=== PATIENT | male | born 1980 ===

== ENCOUNTER 2023-01-20 21:12 | Emergency (ER) | payer MEDICAID, SELFPAY ==
[2023-01-20 21:24] VITALS: BP 123/86; PULSE 82; RESP 20; TEMP 36.9; O2SAT 98; BMI 25.8
--- NOTE | 2023-01-20 23:14 | PC.NURSE ---
L upper molar pain, states hole in pain causing substantial amount of pain no apparent distress aox4 adult female family member and young child at bedside
--- NOTE | 2023-01-20 23:22 | ED.DENTAL ---
HPI - Dental/Oral General Chief complaint: Dental/Oral Stated complaint: tooth pain Time Seen by Provider: 01/20/23 23:06 Source: patient Mode of arrival: ambulatory Limitations: no limitations History of Present Illness HPI Narrative: Patient with dental cavity had a broken tooth upper L 2nd molar which is painful for last 1 week getting worse no fever no chills Related Data Previous Rx's Medication Instructions Recorded amoxicillin 875 mg-potassium 1 tab PO BID #20 tabs 01/20/23 clavulanate 125 mg tablet ibuprofen 600 mg tablet 600 mg PO Q6H PRN fever or pain 01/20/23 #30 tabs tramadol 50 mg tablet 50 mg PO Q6H PRN pain #20 tabs 01/20/23 Allergies Allergy/AdvReac Type Severity Reaction Status Date / Time No Known Allergies Allergy Verified 01/20/23 21:27 Review of Systems Review of Systems: Yes all other systems are reviewed and are negative PMFSH Social History Social History Advance Directives: No Advance Directives Information Provided: Yes Physical Exam Vital Signs: Vital Signs: Last Vital Signs Temp 98.4 F 01/20/23 21:24 Pulse 82 01/20/23 21:24 Resp 20 01/20/23 21:24 BP 123/86 01/20/23 21:24 Pulse Ox 98 01/20/23 21:24 O2 Del Method Room Air 01/20/23 21:24 BMI result Body Mass Index 25.8 HEENT: Teeth image: 1. Broken upper 2nd molar with tenderness no significant swelling Discharge Plan Discharge Clinical Impression: Dental caries Patient Disposition: Home, Self-Care Instructions: Toothache (ED) Additional Instructions: Take antibiotic as prescribed Pain medication as prescribed Follow-up with dentist Prescriptions: New tramadol 50 mg tablet 50 mg PO Q6H PRN (Reason: pain) Qty: 20 0RF ibuprofen 600 mg tablet 600 mg PO Q6H PRN (Reason: fever or pain) Qty: 30 0RF amoxicillin-pot clavulanate 875-125 mg tablet 1 tab PO BID Qty: 20 0RF
[2023-01-21] VITALS: BP 125/80; PULSE 73; RESP 19; TEMP 36.7; O2SAT 98
--- NOTE | 2023-01-21 00:20 | PC.NURSE ---
Discharge instructions given and explained to pt Ambulates safely/independently No apparent distress aox4 all of pt's questions answered pt left with family
== END 2023-01-21 00:16 | disposition home or self-care (01) ==
PROVIDERS: Emergency Provider Internal Medicine
DX: K02.9 Dental caries, unspecified (principal); K08.89 Other specified disorders of teeth and supporting structures
CPT/HCPCS: 99283; 99284

== ENCOUNTER 2024-01-22 14:19 | Outpatient (REF) | payer OTHER, SELFPAY ==
[2024-01-22 14:35] LABS: MANUAL DIFF FLAG NO
[2024-01-22 14:45] LABS: Basophils Absolute Auto 0.1 X10*3/uL (0.0-0.2); Basophils Percent Auto 0.5 % (0-2); Eosinophils Absolute Auto 0.3 X10*3/uL (0.0-0.4); Eosinophils Percent Auto 2.5 % (0-4); Hematocrit 44.5 % (42.0-52.0); Hemoglobin 15.2 g/dl (14.0-18.0); Imm Gran Abs Auto 0.05 X10*3/uL (0.00-0.03); Imm Gran Pct Auto 0.4 % (0.0-0.4); Lymphocytes Percent Auto 35.1 % (20-40); Mean Corpuscular HGB Conc 34.2 g/dl (31.0-36.0); Mean Corpuscular Hemoglobin 30.5 pg (27.0-33.0); Mean Corpuscular Volume 89.2 fL (80.0-98.0); Mean Platelet Volume 9.8 fL (9.4-12.4); Monocytes Percent Auto 9.1 % (2-11); Neutrophils Percent Auto 52.4 % (45-73); Platelet Count 368 X10*3/uL (160-400); Red Blood Count 4.99 X10*6/uL (4.60-5.80); Red Cell Distribution Width 14.1 % (11.0-16.0); White Blood Count 11.4 X10*3/uL (4.8-10.8)
[2024-01-22 15:29] LABS: Alanine Aminotransferase 19 U/L (0-40); Albumin Level 4.4 g/dL (3.5-5.0); Alkaline Phosphatase 71 U/L (39-117); Anion Gap 13 (12-20); Aspartate Amino Transferase 14 U/L (5-37); Bilirubin Total 0.3 mg/dL (0.0-1.0); Blood Urea Nitrogen 11 mg/dL (9-16); Calcium 9.5 mg/dL (8.4-10.2); Carbon Dioxide 25 mmol/L (22-29); Chloride 108 mmol/L (96-108); Cholesterol 226 mg/dL (<200); Estimated Glomerular Filt Rate > 60; Glucose Random 95 mg/dL (60-115); HDL Cholesterol 43 mg/dL (>40); LDL Cholesterol Calculated 159 mg/dL (<100); Potassium 4.1 mmol/L (3.3-5.1); Sodium 142 mmol/L (135-145); Triglycerides 122 mg/dL (<150)
== END 2024-01-22 14:20 | disposition home or self-care (01) ==
LOC: HO.LAB 14:19
PROVIDERS: PCP Internal Medicine; Visit Provider Internal Medicine
DX: E78.00 Pure hypercholesterolemia, unspecified (principal)
CPT/HCPCS: 36415; 80053; 80061; 85025

== ENCOUNTER 2024-01-25 14:14 | Emergency (ER) | payer OTHER, SELFPAY ==
[2024-01-25 14:20] VITALS: BP 148/97; PULSE 98; RESP 18; TEMP 36.8; O2SAT 97; BMI 25.4
--- NOTE | 2024-01-25 14:25 | ED_ITS ---
HPI - Extremity Injury (Upper) General Chief Complaint: Extremity Injury, Upper Stated Complaint: L forearm burning sensation Time Seen by Provider: 01/25/24 14:34 Source: patient Mode of arrival: ambulatory Limitations: no limitations History of Present Illness HPI narrative: Patient is a 43-year-old male who presents to the emergency department for evaluation of the burning pain to the left elbow for/proximal forearm at times radiates down to his hand/palm along the ulnar aspect. Onset was a few months ago. Admits to pain becoming worse [place]. Pain has been intermittent. He saw his primary care provider who told him to apply an [id number] arthritis cream which does help but has not fully alleviated the pain. 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 Related Data Previous Rx's ?Medication ?Instructions ?Recorded amoxicillin 875 mg-potassium 1 tab PO BID #20 tabs 01/20/23 clavulanate 125 mg tablet ibuprofen 600 mg tablet 600 mg PO Q6H PRN fever or pain 01/20/23 #30 tabs tramadol 50 mg tablet 50 mg PO Q6H PRN pain #20 tabs 01/20/23 Allergies Allergy/AdvReac Type Severity Reaction Status Date / Time seafood Allergy Anaphylaxis Verified 01/25/24 14:24 Review of Systems Review of Systems: Yes all other systems are reviewed and are negative PMFSH Past Medical History Attestation statement: The following information was validated with the patient. Source: old records reviewed Social History Social History Alcohol intake: unknown Advance Directives: No Advance Directives Information Provided: No Do you have a plan to hurt others: No Plan Physical Exam Vital Signs: Vital Signs: Last Vital Signs Temp 98.2 F 01/25/24 14:41 Pulse 98 01/25/24 14:41 Resp 18 01/25/24 14:41 BP 148/97 H 01/25/24 14:41 Pulse Ox 97 01/25/24 14:41 O2 Del Method Room Air 01/25/24 14:41 BMI result Body Mass Index 25.4 Appearance: Alert.?Oriented to person, place and time. No acute distress.?Normal affect. Eyes: Pupils equal, round and reactive to light.? ENT: Pharynx normal.?? Neck: Normal inspection.? Neck supple.?? CVS: Heart sounds normal. Normal heart rate and rhythm.? Pulses normal.?? Respiratory: No respiratory distress.? Lung sounds clear to auscultation bilaterally?? Skin: Skin warm and dry.? Normal skin color.? Extremities: Left upper extremity without edema erythema or warmth. No obvious deformity. Neurovascularly intact distally. Tinel and Phalen sign negative. Has tenderness upon palpation over the medial epicondyle, pain with resisted wrist flexion while elbow in extension Neuro: Moves all extremities spontaneously. Sensation intact bilaterally. CN II- XII intact. No focal neuro deficits. Ambulates with normal steady gait. Medical Decision Making Medical Decision Making MDM Narrative: Patient is a 43-year-old female who presents to the emergency department for evaluation of pain to the left elbow/forearm. Extremities neurovascularly intact distally. Physical examination consistent with medial epicondylitis. Do not suspect acute fracture dislocation, would defer XR imaging. Does not appear clinically to have acute bursitis. We discussed conservative treatment including activity modification, bracing/compression sleeve, acetaminophen/ibupr ofen, and outpatient follow-up with primary care provider for persistent symptoms. All questions answered. Stable for discharge. Differential Diagnosis Differential Diagnoses: The differential diagnosis associated with the presentation includes (See narrative above) Independent Historian Clinical information obtained from an independent historian. History obtained from or confirmed by: Spouse External Record Review External record reviewed: Outpatient record Prescription Management I considered prescription management with: Pain Medication (See narrative above) Discharge Plan Discharge Clinical Impression: Epicondylitis elbow, medial Patient Disposition: Home, Self-Care Additional Instructions: You can take ibuprofen 200 mg, 3 tablets (600mg) every 6-8 hours as needed for pain, in addition to Tylenol 500 mg, 2 tablets (1,000mg) every 4-6 hours as needed for pain, but not to exceed 3 doses daily (3,000mg).? Refrain from aggravating movements and heavy lifting with the arm that can exacerbate the pain. Purchase [id number] brace as instructed as this may be beneficial for your symptoms as well. Prescriptions: No Action tramadol 50 mg tablet 50 mg PO Q6H PRN (Reason: pain) Qty: 20 0RF ibuprofen 600 mg tablet 600 mg PO Q6H PRN (Reason: fever or pain) Qty: 30 0RF amoxicillin-pot clavulanate 875-125 mg tablet 1 tab PO BID Qty: 20 0RF Referrals: Sebastian Liao MD [Primary Care Provider] - Interventions: ED Discharge Assessment Last Done: 01/25/24 14:41 Discharge Date/Time: 01/25/24 14:43 Print Language: Irish
[2024-01-25 14:41] VITALS: BP 148/97; PULSE 98; RESP 18; TEMP 36.8; O2SAT 97
== END 2024-01-25 14:43 | disposition home or self-care (01) ==
LOC: HO.ED 14:39
PROVIDERS: Emergency Provider Emergency Medicine; PCP Internal Medicine
DX: M77.02 Medial epicondylitis, left elbow (principal); M25.522 Pain in left elbow; Z79.899 Other long term (current) drug therapy
CPT/HCPCS: 99282

== ENCOUNTER 2024-02-18 13:29 | Outpatient (REF) | payer OTHER, SELFPAY ==
--- NOTE | ~2024-02-18 | XR_ITS ---
EXAMINATION: XR SHOULDER, LEFT CLINICAL INFORMATION: Pain. COMPARISON: None available. TECHNIQUE: AP external rotation, Grashey, scapular Y, and axillary views of the left shoulder. FINDINGS: The bones and soft tissues are normal. No fracture. Glenohumeral and acromioclavicular alignment is anatomic with normal joint space. No abnormal soft tissue calcifications. XR/XR shoulder LT min 2V IMPRESSION: Normal left shoulder. Electronically signed by: Ned Brush MD 03/10/2024 05:16 PM EDT
== END 2024-02-18 13:30 | disposition home or self-care (01) ==
LOC: HO.XRAY 13:29
PROVIDERS: PCP Internal Medicine; Visit Provider Internal Medicine
DX: M25.512 Pain in left shoulder (principal)
CPT/HCPCS: 73030

== ENCOUNTER 2024-07-11 11:04 | Outpatient (RCR) | payer OTHER, SELFPAY ==
--- NOTE | 2024-04-30 12:56 | MHC.PT.EP ---
[facility] [place] Office [place] Office [place] Office [address] Alex Matias [address] [phone] F: [phone] F: [phone] F: [phone] F: [phone] Physical Therapy Plan of Care Date of Evaluation: 04/30/24 Date of Surgery: Diagnosis: LEFT shoulder pain (MD Dx) RS LEFT cubital tunnel syndrome (PT Dx) Assessment: Mckayla is a 43 y.o. male who is referred to PT by Dr. Sebastian Hawthorne MD, with Dx of LEFT shoulder pain. PT diagnosis is cubital tunnel syndrome. Patient impairments include pain in L UE with radicular sxs forearm to 4th and 5th digit in ulnar nerve distribution, limited wrist ROM, weakness in L elbow and wrist. Patient current functional limitations are sleeping L s/l, driving for increased time, reaching forward, gripping items. Patient will benefit from skilled PT to address aforementioned impairments and functional limitations to meet established goals. Frequency and Duration: The patient will be seen 2x/week for 4 weeks Short Term Goals: 2 weeks Patient demonstrates consistency and independence with HEP to self manage symptoms. Technical Assistance Consultant Goals: 4 weeks Patient presents with increased L wrist pronation and supination 90 degrees to restore mobility for driving. Patient presents with increased L hand cafe aide strength 50 lbs to be able to grab grocery items without sxs. Treatment Plan: Modalities to reduce pain, spasms and effusion. Manual therapy to restore motion and function. Therapeutic exercise to improve strength and flexibility. Neuromuscular re-education for posture and balance. Therapeutic activities to return to functional activities of daily living. Electronically signed by: Godwin Denis, PT, DPT Please sign and return to therapist. Thank you for your referral.
--- NOTE | 2024-08-01 09:13 | MHC.PT.DC ---
[facility] [place] Office [place] Office [place] Office [address] Alxe Matias [address] [phone] F: [phone] F: [phone] F: [phone] F: [phone] Physical Therapy Discharge Report Diagnosis: LEFT shoulder pain (MD Dx) RS LEFT cubital tunnel syndrome (PT Dx) Date of Surgery: Date of Evaluation: 04/30/24 Date of Discharge: 08/01/24 Treatments to Date: 14 Cancellations to Date: 1 No Shows to Date: 5 Discharge Status: Independent with HEP Patient Elected to Stop Discharge Summary: Mckayla was last seen in PT on 07/11/24. His PT assessment reads, Mckayla is able to perform strengthening exercises with increased retirement benefits specialist strength for use of more weight machines without c/o any increase in his familiar sxs. Will discuss plan of care with patient after hew PCP FUP. He does show improved mobility of the arm and less joint protection and guarding. He did not call or make any future appointments after this visit and therefore he is discharged from PT at this time. Electronically signed by: Godwin Denis, PT, DPT Please sign and return to therapist. Thank you for your referral.
== END 2024-08-01 09:14 | disposition home or self-care (01) ==
LOC: HO.PT 11:04
PROVIDERS: PCP Internal Medicine; Visit Provider Internal Medicine
DX: M25.512 Pain in left shoulder (principal)
CPT/HCPCS: 97035; 97110; 97140; 97161; 97530